=== PATIENT | male | born 1960 | race Caucasian/White ===

== ENCOUNTER 2024-09-21 10:16 | Outpatient (CLI) | payer MEDICARE, SELFPAY ==
[2024-09-21 14:21] LABS: Alanine Aminotransferase 33 U/L (6-50); Albumin Level 4.5 g/dL (3.5-5.1); Alkaline Phosphatase 97 U/L (38-126); Anion Gap 12 mmol/L (4-12); Aspartate Amino Transferase 33 U/L (17-59); Bilirubin,Total 0.6 mg/dL (0.2-1.3); Blood Urea Nitrogen 18 mg/dL (9-20); Calcium 9.9 mg/dL (8.4-10.2); Carbon Dioxide 20 mmol/L (22-30); Chloride 105 mmol/L (98-107); Cholesterol 190 mg/dL (0-200); Estimated Glomerular Filt Rate > 60; Glucose 120 mg/dL (65-110); HDL Direct 87 mg/dL; Potassium 3.9 mmol/L (3.4-5.0); Sodium 137 mmol/L (137-145); Total Protein 7.7 g/dL (6.3-8.2); Triglycerides 228 mg/dL (<150)
[2024-09-21 14:32] LABS: LDL Cholesterol Direct 56 mg/dL
[2024-09-21 14:52] LABS: Prostate Specific Antigen 5.5 ng/mL (< OR = 4.0)
== END 2024-09-21 10:17 | disposition home or self-care (01) ==
LOC: ANHLAB 10:21
PROVIDERS: PCP Internal Medicine; Visit Provider Internal Medicine
DX: Z12.5 Encounter for screening for malignant neoplasm of prostate (principal); I10 Essential (primary) hypertension; E55.9 Vitamin D deficiency, unspecified
CPT/HCPCS: 36415; 80053; 80061; 82306; 84153; G0103

== ENCOUNTER 2025-01-24 01:32 | Day surgery (SDC) | payer MEDICARE, SELFPAY ==
--- NOTE | 2025-01-14 14:52 | SUR.PREOP ---
[facility] has started construction of its new state of the art ER which will open Spring 2026. With this, we anticipate parking may be a challenge for some our surgical patients and families. Parking spaces are limited but are available for all Surgical, obstetrics, and ER patients sharing this lot. If you arrive and find you are having a hard time finding a parking space, please note that we understand the challenges, please drive around the hospital and park near Hospital Entrance 1. When you enter this entrance, you can ask a volunteer to direct or take you back to the surgical waiting area to check in. We appreciate everyone?s understanding of these expected challenges while we build for your future. Report to the Outpatient Waiting Room, entrance under the green pavilion located off [address], at time 11am__ on date _01/24/25 . Planned Procedure Time: _1pm_.? Time changes happen often and if your time is changed the preop area will call you the afternoon before. - You and your visitor will be asked to self-screen and do not enter if you have any COVID symptoms. Please call surgeon if you need to reschedule. - A mask is optional within the hospital at this time. Patients may have clear liquids (water, carbonated beverages, clear teas, apple juice) until 3 hours prior to surgery with a maximum of 20 ounces. - No food from midnight until time of surgery and no smoking, or chewing tobacco (or any form of nicotine). No chewing gum, candy or mints. Take only the following medications with a SIP of water on the morning of surgery: ___None___ DO NOT STOP ANY OF YOUR OTHER PRESCRIPTION MEDICATIONS PRIOR TO SURGERY EXCEPT THE FOLLOWING Hold all vitamins and supplements for 3 days per anesthesiologist. Medications to discontinue per physician: Advised pt to follow up with GI regarding methotrexate regimen. ___ Date to take last dose of vitamins__01/20/25__ Please no make-up, nail bengali, hairspray, perfume, deodorant, or body powder the day of surgery.? No jewelry (including any body piercings) or valuables the day of surgery, leave them at home.? Please take a shower or bath the night before, or the morning of, surgery with an antibacterial soap.? Wear comfortable, loose fitting clothing.? - Jewelry must be removed prior to entering the operating room.? Rings and piercings that are not removed may be cut off. - The hospital will not accept responsibility for valuables.? - Please leave all valuables, including medications, at home the day of surgery. If you are going home after surgery, a licensed laborer driver must drive you home.? - NO public transportation without another adult if you receive anesthesia. - We recommend that an adult stay with you for 24 hours following discharge. - We also recommend that you do not drive, make important decision, drink alcoholic beverages, or take any drugs that were not prescribed by your health care provider for at least 24 hours after your discharge time. Follow any additional instructions given to you from your surgeon. Telephone instructions given to __Cole____and asked if any additional questions and then verbalized understanding. Patient advised to call surgeon office or pre surgery nurse liaison [phone] if any additional questions.
[2025-01-14 14:58] VITALS: BMI 30.7
--- NOTE | 2025-01-17 07:20 | PM.HPGS ---
History of Present Illness History of Present Illness Consent: Risks, benefits, and alternatives have been discussed and questions answered. Patient agrees to proceed with procedure. Chief complaint: Elev PSA Narrative: Jai Cyr is a 64 year old male Pt. only has 3cm colon remaining due to Crohn's disease. ?PSA recently 5.5. Addendum Note?(Everton Alcazar MD; 11/08/2024 7:02 AM) PSA: 6.0 / 18.7% free. ? Will discuss mpMRI. Addendum Note?(Everton Alcazar MD; 11/08/2024 4:05 PM) I left patient a message regarding his PSA elevation and my recommendations for prostate MRI. Addendum Note?(Everton Alcazar MD; 12/05/2024 4:08 PM) I had a long talk with the patient about his abnormal prostate MRI. ?I am going to have him come by the office for a rectal exam to see if transrectal or transperineal biopsy will be do-able Addendum Note?(Everton Alcazar MD; 12/07/2024 2:47 PM) Patient came by office and I was able to do a normal rectal exam on him. ?I think there is ?enough rectal stump to allow for a traditional UroNav biopsy Review of Systems Cardiovascular: Cardiovascular: Denies chest pain, Denies lightheadedness, Denies palpitations and Denies dyspnea Respiratory: Respiratory: Denies dyspnea Gastrointestinal: Gastrointestinal: Denies diarrhea, Denies nausea and Denies vomiting Genitourinary: Genitourinary: Denies hematuria and Denies dysuria Endocrine: Endocrine: Denies palpitations [facility] Family History Family History (System 09/07/19 @ 09:43 by Namrata Treviño) Father Family history of diabetes mellitus in first degree relative Other Diabetes mellitus Hypertension Social History Social History (System 09/07/19 @ 09:43 by Namrata Treviño) Years smoked: 30 Smoking status: Former smoker Alcohol intake: current Drinks per week: 20 Substance use type: marijuana Other substance usage details: daily Living arrangements: with family Spiritual care concerns: No Meds Home Medications and Allergies Home Medications ?Medication ?Instructions ?Recorded ?Confirmed ?Type ascorbic acid (vitamin C) 1,000 mg 500 mg PO DAILY 01/14/25 01/14/25 History tablet,extended release (C Complex) cyanocobalamin (B12)-cobamamide mustapha sublingual DAILY 01/14/25 History 5,000 mcg-100 mcg sublingual lozenge (B12) losartan 100 mg tablet 100 mg PO DAILY 01/14/25 01/14/25 History methotrexate sodium 2.5 mg tablet 2.5 mg PO WEEKLY 01/14/25 01/14/25 History vit D3-folic acid-vit B2-B6-B12 1 tablet PO DAILY 01/14/25 01/14/25 History 2,000 unit-800 mcg-0.32 mg tablet Allergies Allergy/AdvReac Type Severity Reaction Status Date / Time No Known Allergies Allergy Verified 01/14/25 14:54 Exam Const: General: no acute distress Resp: Effort & Inspection: normal respiratory effort GI: Inspection: non-distended GI Palp: No abdominal tenderness and No Guarding due to palpation present (GI) Auscultation: normal bowel sounds Assessment and Plan Assessment and plan (1) Elevated PSA: Code(s): R97.20 - Elevated prostate specific antigen [PSA] Status: Acute Assessment and Plan: UroNav prostate biopsy
--- OUTSIDE RECORDS SUMMARY | 2025-01-24 01:35 | XMS_ITS | Patient Health Record ---
Author Organization [facility] Address [address] [facility] [address] [place] [address] Care Team Providers Care Supervisor Laboratory Animal Facility Name Role Phone Chauncey Aviles Unavailable [phone] Reason For Referral No Information Plan Of Treatment No Information
--- OUTSIDE RECORDS SUMMARY | 2025-01-24 01:35 | XMS_ITS | Clinical Summary ---
Author Organization [facility] Address [address] [place] [address] Phone Care Team Providers Care Promotions Manager Name Role Phone Jai Hanson MD Primary Care Provider [phone] Allergies No known active allergies Medications losartan (COZAAR) 50 MG Tablet Take 50 mg by mouth daily. Active ibuprofen (MOTRIN) 200 MG Tablet Take 200 mg by mouth every 8 hours as needed (2 tabs prn). Active Family History Medical History Relation Name Comments Diabetes Father Osteoarthritis Mother Stroke Mother Relation Name Status Comments Father Mother Alive Social History Tobacco Use Types Packs/Day Years Used Date Smoking Tobacco: Some Days Cigarettes 0.3 30 Smokeless Tobacco: Never Alcohol Use Standard Drinks/Week Comments Yes 0 (1 standard drink = 0.6 oz pur e alcohol) one mixed drink nightly Sex and Gender Information Value Date Recorded Sex Assigned at Not on file Legal Sex Male 7:35 PM CDT Gender Identity Not on file Sexual Orientation Not on file Occupation Industry Job Start Date Job End Date disabled Not on file Not on file Not on file Last Filed Vital Signs Vital Sign Reading Time Taken Comments Blood Pressure 140/90 05/04/2018 2:59 PM VISUAL ASSOCIATE Pulse 87 05/04/2018 2:59 PM VISUAL ASSOCIATE Temperature 36 C (96.8 F) 07/01/2015 12:45 PM CDT Respiratory Rate 20 02/28/2018 2:54 PM VISUAL ASSOCIATE Oxygen Saturation 98% 05/04/2018 2:59 PM VISUAL ASSOCIATE Inhaled Oxygen Concentration - - Weight 103 kg (227 lb) 05/04/2018 2:59 PM VISUAL ASSOCIATE Height 175.3 cm (5' 9) 05/04/2018 2:59 PM VISUAL ASSOCIATE Body Mass Index 33.52 05/04/2018 2:59 PM VISUAL ASSOCIATE Plan of Treatment Health Maintenance Due Date Last Done Comments Hepatitis C Virus (HCV) Screening 1960 TdaP Immunization 1960 Cologuard 02/07/2005 Immunochemical Fecal Occult Blood 02/07/2005 Pneumococcal Immunization (5 0+ years) (1 of 1 - PCV) 02/07/2010 Zoster Immunization (1 of 2) 02/07/2010 Influenza Immunization (#1) 11/26/202412/26, 02/17/2015 SARS-COV-2 Immunization ( season) 2024 02/09/2021, 06/02/2020 Colonoscopy 03/16/2028 03/16/2018, 07/01/2015 Colorectal Cancer Screening 03/16/2028 Respiratory Syncytial Virus (RSV) Immunization (Adult) (1 - 1-dose 75+ series) 02/07/2035 Hepatitis B Immunization Aged Out No longer eligible based on patient's age to complete this topic Human Papillomavirus (HPV) Immunization Aged Out No longer eligible b ased on patient's age to complete this topic Meningococcal Immunization (ACWY) Aged Out No longer eligible b ased on patient's age to complete this topic Rotavirus Immunization Aged Out No lo nger eligible based on patient's age to complete this topic Procedures Procedure Name Priority Date/Time Associated Diagnosis Comments COLONOSCOPY Routine 03/16/2018 from Last 3 Months or Most Recently Relevant to Health Maintenance Results * COLONOSCOPY (03/16/2018) Eddi Couch DO PROCEDURE/MINOR SURGICAL ORDERA BLES Final Result from Last 3 Months or Most Recently Relevant to Health Maintenance Insurance MEDICARE Care Teams Promotions Manager Relationship Specialty Start Date End Date Jai Hanson MD PCP - General Internal Medicine 12/23/17
--- OUTSIDE RECORDS SUMMARY | 2025-01-24 01:35 | XMS_ITS | Clinical Summary ---
Author Organization [facility] Address [address] [place]ar[place]: Sandra [place]rel[place]n [place] [address] Care Team Providers Care Garnett Feeder Name Role Phone Unavailable Primary Care Provider Unavailabl e Medications predniSONE (DELTASONE) 20 mg tablet Take 2 tablets (40 mg) by mouth every morning for 7 days, THEN 1 tablet (20 mg) every morning for 7 days. 21 Tablet 08/20/2021 3:18 PM CDT 2 Active losartan (COZAAR) 50 mg tablet TAKE ONE AND ONE-HALF TABLETS ONCE DAILY 135 Tablet 1 01/06/2022 3:14 PM CDT 2 Active clobetasoL (TEMOVATE) 0.05 % Solution Apply a thin film twice daily to rash on abdomen. 50 mL 2 11/02/2021 6:00 PM CDT 2 Active ergocalciferol (VITAMIN D2) 50,000 unit capsule Take 1 capsule by mouth once monthly. 4 Capsule 1 12/21/2021 2:50 PM CDT 2 Active methotrexate (RHEUMATREX) 2.5 mg Tablet Take 6 tablets (15 mg total) by mouth every 7 days 24 Tablet 2 01/06/2022 3:14 PM CDT 2 Active cholecalciferol , Vitamin D3, 125 mcg (5,000 unit) Capsule Take 1 capsule (5,000 Units total) by mouth daily 90 Capsule 3 10/19/2022 2:57 PM CDT 2 Active losartan (COZAAR) 50 mg tablet Take 1.5 Tablets (75 mg) by mouth daily. 135 Tablet 1 01/24/2023 3:23 PM CDT 3 Active losartan (COZAAR) 50 mg tablet Take 1.5 Tablets (75 mg) by mouth daily. 135 Tablet 1 08/15/2023 9:34 AM CDT 4 Active clobetasoL (TEMOVATE) 0.05 % Solution Apply thin layer to affected area(s) on abdomen 2 times daily. 50 mL 2 08/15/2023 9:34 AM CDT 4 Active cholecalciferol , Vitamin D3, 125 mcg (5,000 unit) Capsule Take 1 capsule (5,000 Units total) by mouth daily 90 Capsule 3 11/07/2024 2:02 PM CDT 5 Active methotrexate (RHEUMATREX) 2.5 mg Tablet Take 6 Tablets (15 mg) by mouth every 7 days. 72 Tablet 12/11/2024 9:36 AM CDT 5 Active folic acid (FOLVITE) 1 mg tablet Take 1 tablet (1 mg total) by mouth daily 90 Tablet 3 01/12/2025 1:27 PM CDT 5 Active losartan (COZAAR) 100 mg tablet Take 1 Tablet (100 mg) by mouth daily. 90 Tablet 01/12/2025 1:27 PM CDT 5 Active losartan (COZAAR) 100 mg tablet Take 1 Tablet (100 mg) by mouth daily. 90 Tablet 09/22/2024 10:29 AM CDT 5 01/12/20 25 Discontinu ed(Reorder ) Immunizations Immunization Administration Dates Next Due INFLUENZA VACCINE TRIVALENT SPLIT VIRUS, (6 MOS UP), 0.5ML (PF), IM 05/21/2024 Social History Tobacco Use Types Packs/Day Years Used Date Smoking Tobacco: Never Assessed Sex and Gender Information Value Date Recorded Sex Assigned at Not on file Legal Sex Male 3:27 PM CDT Gender Identity Not on file Sexual Orientation Not on file Plan of Treatment Health Maintenance Due Date Last Done Comments DTAP/TDAP/TD VACCINES (1 - Tdap) 02/07/1979 COLORECTAL SCREENING 02/07/2005 Colorectal Cancer Screening 02/07/2005 FIT-DNA Q 3 years 02/07/2005 FIT/FOBT Q 1 year 02/07/2005 Flex Sig/CT Colonography Q 5 years 02/07/2005 ZOSTER VACCINE (1 of 2) 02/07/2010 INFLUENZA VACCINE (#1) 2024 05/21/2024 RSV VACCINE (60+ or ) (1 - 1-dose 75+ series) 02/07/2035 Insurance RX [employer] Medicare Part D RX [employer] (INTERNAL) [facility]
--- OUTSIDE RECORDS SUMMARY | 2025-01-24 01:35 | XMS_ITS | Encounter Summary ---
Author Organization [facility] Address [address] [place] [address] Phone Care Team Providers Care School Attendance Secretary Name Role Phone Jai Hanson MD Primary Care Provider [phone] Encounter Details Date Type Department Care Team (Late st Contact Info) Description 09/19/2020 Orders Only [facility] Scanning, Provider Social History Tobacco Use Types Packs/Day Years Used Date Smoking Tobacco: Former Cigarettes 0.5 44.1 1 975 - 05/01/2018 Smokeless Tobacco: Never Comments:working towards smo apurva cessation Alcohol Use Standard Drinks/Week Comments Yes 21 (1 standard drink = 0.6 oz pure alcohol) ~ 2 drinks per evening (Whiskey) Sex and Gender Information Value Date Recorded Sex Assigned at Not on file Legal 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[employer] Gender Identity Not on file Sexual Orientation Not on file documented as of this encounter Plan of Treatment Not on file documented as of this encounter Procedures Procedure Name Priority Date/Time Associated Diagnosis Comments SCAN - LABS 09/19/2020 documented in this encounter Results * SCAN - LABS (09/19/2020) us Provider Scanning Edited Result - Final documented in this encounter Visit Diagnoses Not on filedocumented in this encounter Care Teams School Attendance Secretary Relationship Specialty Start Date End Date Jai Hanson MD PCP - General Internal Medicine 02/13/18 documented as of this encounter
--- OUTSIDE RECORDS SUMMARY | 2025-01-24 01:35 | XMS_ITS | Encounter Summary ---
Author Organization [facility] Address [address] [facility] [address] [place] [address] Phone Care Team Providers Care Crane Hoist Or Lift Operator Name Role Phone Jai Hanson MD Primary Care Provider [phone] Encounter Details Date Type Department Care Team (Late st Contact Info) Description 01/19/2025 Results Follow-Up [facility] Medicine Gastroenterology [address] [place] [address] [place] [id number] Charlotte Geller MD PhD [address] [place] [address] [email or web address] Blood, Hepatitis B Surface Antigen Blood, BLOOD MISC TO BRISTOL Social History Tobacco Use Types Packs/Day Years Used Date Smoking Tobacco: Some Days Cigarettes 0.5 46.9 Started: 1974; Last attempted to quit: 05/01/2018 Smokeless Tobacco: Never Comments:Only smokes 2-3 cig s/ week- not interested in quitting- no info given Alcohol Use Standard Drinks/Week Comments Yes 21 (1 standard drink = 0.6 oz pure alcohol) ~ 2 drinks per evening (Whiskey) AUDIT-C Answer Date Recorded Q1: How often do you have a drink containing alcohol? 4 or more times a week 07/03/2024 Q2: How many drinks containi ng alcohol do you have on a typical day when you are drinking? 1 or 2 Q3: How often do you have si x or more drinks on one occasion? Weekly 07/03/2024 Hunger Vital Sign Answer Date Recorded Within the past 12 months, y ou worried that your food would run out before you got the money to buy more. Never true 11/30/19 25 Within the past 12 months, t he food you bought just didn't last and you didn't have money to get more. Never true 11/29/2024 Personal Safety Answer Date Recorded Have you ever been in or are you currently in a harmful physical or emotional relationship or is someone making you feel afraid or unsafe? 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
--- OUTSIDE RECORDS SUMMARY | 2025-01-24 01:35 | XMS_ITS | Clinical Summary ---
Author Organization [facility] Address [address] [place] [address] Care Team Providers Care Railroad Supervisor [employer] Name Role Phone Jai Hanson MD Primary Care Provider [phone] Allergies No known active allergies Medications multivitamin capsuleIndicatio ns:Vitamin Deficiency Prevention Take 1 capsule by mouth every morning Active CYANOCOBALAMIN, VITAMIN B-12, ORALIndications: Prevention of Vitamin B12 Deficiency Take 1,000 Units by mouth every morning Unsure of dose Active ibuprofen (ADVIL,MOTRIN) 200 mg tab/capIndicatio ns:Pain Take 4 tablet/capsule (800 mg total) by mouth every 6 (six) hours as needed for pain Active acetaminophen (TYLENOL) 500 mg tablet Take 1 tablet (500 mg total) by mouth every 6 (six) hours as needed for pain Active certolizumab pegol (CIMZIA) 400 mg (200 mg x 2) kitIndications:C rohn's disease of both small and large intestine without complication (HCC) Inject 2 mL (400 mg total) under the skin every 2 (two) weeks Cimzia administered @ [facility] 5C. 2 mL 11 05/28/19 23 Active clobetasoL (TEMOVATE) 0.05 % external solutionIndicati ons:Dermatosis of the Scalp Apply thin film twice daily to affected area of rash on abdomen. 50 mL 2 08/11/19 24 Active cholecalciferol (VITAMIN D-3) 5,000 unit capsuleIndicatio ns:Low serum vitamin D Take 1 capsule (5,000 Units total) by mouth daily 90 capsule 3 04/12/19 25 Active methotrexate 2.5 mg tabletIndication s:Crohn's disease of both small and large intestine with other complication Take 6 Tablets (15 mg) by mouth every 7 days. 72 tablet 12/11/19 25 Active losartan (COZAAR) 100 mg tablet Take 1 tablet (100 mg total) by mouth daily 09/21/19 25 Active folic acid (FOLVITE) 1 mg tabletIndication s:Crohn's disease of both small and large intestine with other complication,Hig h risk medications (not anticoagulants) long-term use Take 1 tablet (1 mg total) by mouth daily 90 tablet 3 01/11/20 25 Active losartan (COZAAR) 50 mg tabletIndication s:hypertension Take 1.5 tablets (75 mg total) by mouth every morning Discontin ued(Alter martin therapy) ergocalciferol (VITAMIN D) 50,000 unit capsule 12/22/19 Discontin ued(Thera py completed ) folic acid (FOLVITE) 1 mg tablet Take 1 tablet every day by oral route. 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 He could also try Flonase. He should continue to follow with Dermatology particularly if we need to change to another treatment that may not be as effective on pyoderma as a TNF. Perianal fistula due to Crohn's disease 01/11/20 Assessment & Plan (01/10/2025 6:53 PM CDT): The patient has patent fistulas and likely has minimal symptoms due to his diversion. He has had more production of mucus recently. We will try to find him a treatment that is effective for perianal disease to limit progression. High risk medications (not anticoagulants) long- term use 04/28/2023 Encounter for smoking cessation counseling 04/28 Assessment & Plan (01/10/2025 6:54 PM CDT): The patient is strongly encouraged to quit smoking as he is already doing it very infrequently. He is also encouraged to cut back alcohol as this maybe contributing to his macrocytosis and steatosis Ileostomy status 05/01/2020 Incisional hernia, without obstruction or gangre ne 01/15/2020 Overview (01/15/2020): Added automatically from request for surgery [id number] Parastomal hernia without obstruction or gangren e 01/15/2020 Overview (01/15/2020): Added automatically from request for surgery [id number] Incarcerated incisional hernia 03/10/2018 Overview (03/10/2018): Added automatically from request for surgery [id number] Hypertension 02/13/2018 Parastomal hernia 02/13/2018 Incisional hernia 02/13/2018 Bilateral inguinal hernia 02/13/2018 Low vitamin D level 12/25/2014 Skin abrasion 01/17/2012 Crohn's disease of both small and large intestin e 08/05/2010 Assessment & Plan (01/10/2025 6:52 PM CDT): Unfortunately the patient' seems to be losing response to Cimzia. We will check his trough level tomorrow to see if the loss is related to low drug level or antibodies. We suspect there is limited ability to increase his dose of Cimzia. As he previously failed Remicade, azathioprine, and methotrexate and is more symptomatic of his perianal fistulas and he has had a history parastomal pyoderma gangrenosum, Dr. Geller would be most interested in a systemic treatment that would potentially treat the skin and perianal disease. Specifically he would be most interested an IL 23 if it could be approved and affordable. He is not felt to be a good candidate a ROHAN inhibitor given his smoking history and other comorbidities. If an IL 23 we would not be affordable, we potentially are a little worried that it may not be sufficient for his perianal disease or pyoderma. Encounters Date Type Department Care Team Description 01/19/2025 Results Follow-Up [facility] Medicine Gastroenterology [address] [facility] 12th Floor [address] [place] [phone] Charlotte Geller MD PhD T-SPOT.TB Blood, Hepatitis B Surface Antigen Blood, BLOOD MISC TO [facility] 01/11/2025 9:30 AM CDT Infusion [facility] Special[facility]fusion [facility] [address] [facility] 7th [place] [address] Crohn's disease of both small and large intestine with other complication (Primary Dx) 01/11/2025 9:10 AM CDT Lab [facility] ([facility]) [address] [place] [phone] Crohn's disease of both small and large intestine with other complication; High risk medications (not anticoagulants) long-term use; Routine health maintenance 01/10/2025 2:30 PM CDT Office Visit [facility] [address] [place] [address] Medical Office [address] [place] [phone] Charlotte Geller MD PhD Crohn's disease of both small and large intestine with other complication (Primary Dx); High risk medications (not anticoagulants) long-term use; Perianal fistula due to Crohn's disease (HCC); Pyoderma gangrenosum (HCC); Encounter for smoking cessation counseling 01/10/2025 Orders Only [facility] [address] [place] [address] 12th [place] [address] [place] [address] Tabitha Martin, JAYME Crohn's disease of both small and large intestine with other complication (Primary Dx); High risk medications (not anticoagulants) long-term use; Routine health maintenance 01/09/2025 Results Follow-Up [facility] [address] [place] [address] Medical Office Building 1 [address] [place] [phone] Charlotte Geller MD PhD MRI Abdomen Enterography W WO Contrast 01/08/2025 10:56 AM CDT - 01/08/2025 11:59 PM CDT Hospital Encounter [facility] [address] [place] [address] Crohn's disease of both small and large intestine with other complication Discharge Disposition: Discharge to home or self care 01/04/2025 Orders Only [facility] Medicine Gastroenterology [address] [phone] Charlotte Geller MD PhD 01/04/2025 Orders Only [facility] Medicine Gastroenterology [address] [phone] Tabitha Martin, RN Crohn's disease of both small and large intestine with other complication (Primary Dx); High risk medications (not anticoagulants) long-term use; Routine health maintenance 12/27/2024 9:30 AM CDT Infusion [facility] Special[facility]fusion [facility] Pending sale to [facility] [address] [phone] Crohn's disease of both small and large intestine with other complication (Primary Dx) 12/13/2024 9:30 AM CDT Infusion [facility]fusion [facility] [address] [phone] Crohn's disease of both small and large intestine with other complication (Primary Dx) 12/04/2024 Documentation [facility] Medicine Gastroenterology [address] [place] [phone] Tabitha Martin, carpenter's helper supply orders 11/29/2024 9:30 AM CDT Clinical Support [facility]fusion [facility] [address] [phone] Crohn's disease of both small and large intestine with other complication (Primary Dx) 11/16/2024 Results Follow-Up [facility] Medicine Gastroenterology [address] [place] [phone] Charlotte Geller MD PhD CRP (acute phase), Comprehensive metabolic panel, CBC with auto differential, Additional followed-up results: 2 11/15/2024 10:30 AM CDT [facility]) [address] [place] [phone] Crohn's disease of both small and large intestine with other complication; High risk medications (not anticoagulants) long-term use; Routine health maintenance 11/15/2024 9:30 AM CDT Clinical Support [facility]fusion [facility] Pending [facility] to [facility] [address] [phone] Crohn's disease of both small and large intestine with other complication (Primary Dx) 11/01/2024 9:30 AM CDT Clinical Support [facility] P[facility] to [facility] [address] [phone] Crohn's disease of both small and large intestine with other complication (Primary Dx) 10/26/2024 Orders Only [facility] Infusion [facility] [address] [place] [phone] Ramila Collins RN from Last 3 Months Surgical History Surgery Date Site/Laterality Comments COLONOSCOPY HERNIA REPAIR 03/28/1997 - 03/27/1998 INGUINAL HERNIA REPAIR HERNIA REPAIR 03/28/2004 - 03/27/2005 I&D PERIANAL ABSCESS SUPERFICIAL 03/28/1999 - 03/27/2000 subtotal colectomy TOTAL PROCTECTOMY 06/26/2010 - 07/25/2010 completion proctectomy, ventral hernia repair, end ileostomy CYSTOSCOPY W/ URETERAL STENT PLACEMENT 06/26/2010 - 07/25/2010 Bilateral COLECTOMY 03/28/1995 - 03/27/1996 ileocolic resection TONSILLECTOMY INCISIONAL HERNIA REPAIR Open recurrent incisional and parastomal hernia repair 2020 Medical History Medical History Date Comments Hypertension 02/13/2018 Parastomal hernia 02/13/2018 Incisional hernia 02/13/2018 Bilateral inguinal hernia 02/13/2018 Crohn's disease (HCC) 1970 Low vitamin D level 12/25/2014 History of blood transfusion Anal fistula Tobacco abuse GERD (gastroesophageal reflux disease) Family History Medical History Relation Name Comments Diabetes Father Family history of diabetes mellitus - (Added by TW Conv) Hypertension Father Kidney disease Father Family histor y of kidney disease - (Added by TW Conv) Liver disease Father Family history of liver disease - (Added by TW Conv) Stroke Mother Relation Name Status Comments Father (Age 69) Mother Alive Social History Tobacco Use Types Packs/Day Years Used Date Smoking Tobacco: Some Days Cigarettes 0.5 46.9 Started: 1974; Last attempted to quit: 05/01/2018 Smokeless Tobacco: Never Tobacco Cessation:Ready to Q uit: No; Counseling Given: No Comments:Only smokes 2-3 cigs/ week- not interested in quitting- no info [...] on file 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 Gender Identity Not on file Sexual Orientation Not on file Obstetrics History Last Filed Vital Signs Vital Sign Reading Time Taken Comments Blood Pressure 163/78 01/11/2025 9:30 AM CDT Pulse 69 01/11/2025 9:30 AM CDT Temperature 36.2 C (97.2 F) 01/11/2025 9:30 AM CDT Respiratory Rate 16 01/11/2025 9:30 AM CDT Oxygen Saturation 97% 01/11/2025 9:30 AM CDT Inhaled Oxygen Concentration - - Weight 94.6 kg (208 lb 9.6 oz) 01/10/2025 2:15 P M CDT Height 174 cm (5' 8.5) 01/10/2025 2:15 PM CDT Body Mass Index 31.26 01/10/2025 2:15 PM CDT Plan of Treatment Health Maintenance Due Date Last Done Comments Colon Cancer Screening-Colonoscopy 1960 Depression Screening 1960 Hepatitis C Screening 1960 Prostate Cancer Screening-PSA 1960 DTaP/Tdap/Td Vaccine (1 - Tdap) 02/07/1971 Regular Well Visit/Exam 18-64 02/07/1978 Pneumococcal vaccine <65 (1 of 2 - PCV) 02/07/1979 Lung Cancer Screening 02/07/2010 Covid-19 Vaccine (4 - 2024-2 6 season) 2024 02/09/2021, 06/02/2020, 05/27/2020 Influenza Vaccine (#1) 2024 , 01/14/2023, 02/25/2022, Additional history exists Zoster Vaccine Completed 02/22/2023, 11/23/2022 Hepatitis B Screening Completed 01/11/2025 Medical Devices Implanted Type Area Grounds Person Device Identifier Shelf Expiration Date Model / Serial / Lot [employer]/C R Bard [id number] Bard [id number] Monofilament Soft Lightweight Low Profile Square - [id number] Implanted:Qty: 1 on 07/03/2018 by Everton Cid MD at [facility] Mesh N/A: Abdomen [employer] Bard [id number] 03/24/2023 [id number] / / [id number] [employer] R Bard [id number] Soft Mesh 6x6in Patch Knitted Flat Sheet Groin Hernia Square Mesh - Sn/A - [id number] Implanted:Qty: 1 on 04/21/2020 by Everton Cid MD at [facility] Mesh N/A: Abdomen [employer]/C R Bard [id number] 08/22/2024 [id number] / N/A / [id number] Procedures Procedure Name Priority Date/Time Associated Diagnosis Comments HEPATITIS B SURFACE ANTIGEN Routine 01/11/2025 9:15 AM CDT Crohn's disease of both small and large intestine with other complication High risk medications (not anticoagulants) long-term use Routine health maintenance T-SPOT.TB Routine 01/11/2025 9:15 AM CDT Crohn's disease of both small and large intestine with other complication High risk medications (not anticoagulants) long-term use Routine health maintenance BLOOD MISC TO [facility] Routine 01/11/2025 9: 07 AM CDT MRI ABDOMENT ENTEROGRAPHY W WO CONTRAST Schedule Routine, Read Routine (OP Routine) 01/08/2025 12:35 PM CDT Crohn's disease of both small and large intestine with other complication EGFR Routine 11/15/2024 9:47 AM CDT Crohn's disease of both small and large intestine with other complication High risk medications (not anticoagulants) long-term use Routine health maintenance DIFFERENTIAL AUTO Routine 11/15/2024 9:4 7 AM CDT Crohn's disease of both small and large intestine with other complication High risk medications (not anticoagulants) long-term use Routine health maintenance CBC WITH AUTO DIFFERENTIAL Routine 11/15/2024 9:47 AM CDT Crohn's disease of both small and large intestine with other complication High risk medications (not anticoagulants) long-term use Routine health maintenance COMPREHENSIVE METABOLIC PANEL Routine 11/15/2024 9:47 AM CDT Crohn's disease of both small and large intestine with other complication High risk medications (not anticoagulants) long-term use Routine health maintenance CRP (ACUTE PHASE) Routine 11/15/2024 9:4 7 AM CDT Crohn's disease of both small and large intestine with other complication High risk medications (not anticoagulants) long-term use Routine health maintenance from Last 3 Months Results * T-SPOT.TB Blood (01/11/2025 9:15 AM CDT) [facility] T-SPOT.TB Negative SeeBelow Comment: Normal Value: Negative A negative test result does not exclude the possibility of exposure to or infection with Mycobacterium tuberculosis (M. tuberculosis). Patients with recent exposure to TB infected individuals exhibiting a negative T-SPOT.TB result should be considered for retesting within 6 weeks or if other relevant clinical symptoms indicate. Results from T-SPOT.TB testing must be used in conjunction with each individual's epidemiological history, current medical status, and results of other diagnostic evaluations. The T-SPOT.TB test is qualitative and results are reported as positive, borderline or negative, given that the test controls perform as expected. In line with the Centers for Disease Control and Prevention's 2010 recommendation to report quantitative measurements alongside the qualitative result, the laboratory provides spot counts for informational purposes only. The T-SPOT.TB test should not be interpreted as a quantitative test. T-SPOT.TB Panel A Spot Count 1 [facility] T-SPOT.TB Panel B Spot Count 3 [facility] T-SPOT.TB Negative Control Passed [facility] T-SPOT.TB Positive Control Passed [facility] Comment: Test Performed at: [facility] [address] [place] [phone] DALILA TOBIAS,PHD Blood 01/11/2025 9:15 AM CDT 01/11/2025 10:16 AM CDT Charlotte Geller MD PhD LAB MICROBIOLOGY - GENERA L ORDERABLES Final Result [facility] [place] [address] * Hepatitis B Surface Antigen Blood (01/11/2025 9:15 AM CDT) HepBsAg Nonreactive Nonreactive Blood 01/11/2025 9:15 AM CDT 01/11/2025 9:25 AM CDT Charlotte Geller MD PhD LAB MICROBIOLOGY - GENERA L ORDERABLES Final Result [facility] [place] [address] * MRI Abdomen Enterography W WO Contrast (01/08/2025 12:35 PM CDT) Anatomical Region Laterality Modality Body N/A Magnetic Resonan ce 01/08/2025 2:45 PM CDT Impressions 01/08/2025 3:48 PM CDT 1. Short segments of active inflammation in the distal ileum as well as in small bowel loops of the mid abdomen and right lower quadrant at the level of a ventral hernia. 2. Patent appearing suprasphincteric fistulous tract extending from the rectal pouch to the intergluteal cleft is again seen. 3. Post surgical changes from subtotal colectomy with end ileostomy and Us's pouch. Dictated by: Sujey Grier M.D. The radiology attending physician has personally reviewed this study, and had reviewed and/or edited this written report and agrees with it. Electronically signed by: John Lombardi M.D. Narrative 01/08/2025 3:48 PM CDT EXAMINATION: MAGNETIC RESONANCE IMAGING OF THE ABDOMEN WITH AND WITHOUT CONTRAST HISTORY: Most recent ileoscopy on 07/03/2024 demonstrated multiple ulcers in the neoterminal ileum. Some of the ulcers were distributed circumferentially resulting in stenosis. A stenosis 10 cm proximal from the stoma was dilated. Biopsy results demonstrated acute and chronic inflammation. TECHNIQUE: Magnetic resonance imaging of the abdomen was performed prior to and following the administration of intravenous contrast. Oral contrast and 1 mg of intravenous glucagon was administered prior to the examination. Protocol: MR Enterography Contrast: Dotarem (gadoterate) 18 mL COMPARISON: CTs with most recent dated 06/06/2020; MRI 09/06/2018 FINDINGS: Bowel: Evaluation of the small bowel is partially limited due to underdistention an incomplete inclusion of the anterior abdominal wall on the coronal sequences. Short segments measuring approximately 2 cm demonstrating mild wall thickening and mucosal enhancement in the distal ileum upstream of the stoma, within small bowel near the ventral hernia defect, and within the mid abdomen (series 38, image 14) (series 40, image 27 and image 30). Suprasphincteric fistula extending from the low rectal Us's pouch at approximately the 5 o'clock position to the presacral space and through the left levator ani extending to the skin surface at the gluteal cleft is again seen, and likely patent (series 31, image 12). There is a supra intersphincteric low rectal fistulous tract extending to the presacral space and through the Postsurgical changes from subtotal colectomy with end ileostomy in the left lower quadrant. The parastomal hernia is increased in size compared to the prior examination and again demonstrates nonobstructed loops of small bowel. Us's pouch in the pelvis, which demonstrates submucosal fat deposition likely relating to sequelae of chronic inflammation. Right ventral abdominal wall hernia containing a nonobstructed loop of small bowel. Liver/Bile Ducts: Diffuse hepatic steatosis. No significant iron deposition. No liver surface nodularity. No significant intrahepatic or extrahepatic biliary ductal dilation. Gallbladder: Unremarkable. Pancreas: Unremarkable. Spleen: Unremarkable. Adrenals: Unremarkable. Kidneys: Symmetric enhancement. No hydronephrosis. Tiny nonenhancing cyst in the right interpolar region. Bladder: Unremarkable. Reproductive organs: Prostate and seminal vesicles are present and grossly unremarkable allowing for the large [id number]. Other Findings: Multilevel degenerative changes in the imaged spine. Scarring along the anterior abdominal wall. Scarring along the anterior abdominal wall. Procedure Note John Lombardi MD - 01/08/2025 EXAMINATION: MAGNETIC RESONANCE IMAGING OF THE ABDOMEN WITH AND WITHOUT CONTRAST HISTORY: Most recent ileoscopy on 07/03/2024 demonstrated multiple ulcers in the neoterminal ileum. Some of the ulcers were distributed circumferentially resulting in stenosis. A stenosis 10 cm proximal from the stoma was dilated. Biopsy results demonstrated acute and chronic inflammation. TECHNIQUE: Magnetic resonance imaging of the abdomen was performed prior to and following the administration of intravenous contrast. Oral contrast and 1 mg of intravenous glucagon was administered prior to the examination. Protocol: MR Enterography Contrast: Dotarem (gadoterate) 18 mL COMPARISON: CTs with most recent dated 06/06/2020; MRI 09/06/2018 FINDINGS: Bowel: Evaluation of the small bowel is partially limited due to underdistention an incomplete inclusion of the anterior abdominal wall on the coronal sequences. Short segments measuring approximately 2 cm demonstrating mild wall thickening and mucosal enhancement in the distal ileum upstream of the stoma, within small bowel near the ventral hernia defect, and within the mid abdomen (series 38, image 14) (series 40, image 27 and image 30). Suprasphincteric fistula extending from the low rectal Us's pouch at approximately the 5 o'clock position to the presacral space and through the left levator ani extending to the skin surface at the gluteal cleft is again seen, and likely patent (series 31, image 12). There is a supra intersphincteric low rectal fistulous tract extending to the presacral space and through the Postsurgical changes from subtotal colectomy with end ileostomy in the left lower quadrant. The parastomal hernia is increased in size compared to the prior examination and again demonstrates nonobstructed loops of small bowel. Us's pouch in the pelvis, which demonstrates submucosal fat deposition likely relating to sequelae of chronic inflammation. Right ventral abdominal wall hernia containing a nonobstructed loop of small bowel. Liver/Bile Ducts: Diffuse hepatic steatosis. No significant iron deposition. No liver surface nodularity. No significant intrahepatic or extrahepatic biliary ductal dilation. Gallbladder: Unremarkable. Pancreas: Unremarkable. Spleen: Unremarkable. Adrenals: Unremarkable. Kidneys: Symmetric enhancement. No hydronephrosis. Tiny nonenhancing cyst in the right interpolar region. Bladder: Unremarkable. Reproductive organs: Prostate and seminal vesicles are present and grossly unremarkable allowing for the large [id number]. Other Findings: Multilevel degenerative changes in the imaged spine. Scarring along the anterior abdominal wall. Scarring along the anterior abdominal wall. IMPRESSION: 1. Short segments of active inflammation in the distal ileum as well as in small bowel loops of the mid abdomen and right lower quadrant at the level of a ventral hernia. 2. Patent appearing suprasphincteric fistulous tract extending from the rectal pouch to the intergluteal cleft is again seen. 3. Post surgical changes from subtotal colectomy with end ileostomy and Us's pouch. Dictated by: Sujey Grier M.D. The radiology attending physician has personally reviewed this study, and had reviewed and/or edited this written report and agrees with it. Electronically signed by: John Lombardi M.D. us Charlotte Geller MD PhD IMG MRI PROCEDURES Final Result * eGFR (11/15/2024 9:47 AM CDT) eGFR >90 >=60 mL/min/1. 73 m2 Comment: Interpretive Data Reference Interval Normal >/= 90 mL/min/1.73m2 Mildly decreased* 60 - 89 mL/min/1.73m2 Mildly to moderately decreased 45 - 59 mL/min/1.73m2 Moderately to severely decreased 30 - 44 mL/min/1.73m2 Severely decreased 15 - 29 mL/min/1.73m2 Kidney Failure < 15 mL/min/1.73m2 *Relative to young adult level Estimated glomerular filtration rate is determined by the 2020 CKD-EPI equation recommended by the National Kid[employer] (A Unifying Approach to GFR Estimation: Recommendations of the NKF-ASK Task Force on Reassessing the Inclusion of Race in Diagnosing Kidney Disease, JASN 202). The CKD-EPI equation should not be used for patients with unstable renal function and has not been validated in children and those over 70. Current interpretive data was last reviewed 2021. Blood 11/15/2024 9:47 AM CDT 11/15/2024 10:08 AM CDT us Charlotte Geller MD PhD LAB BLOOD ORDERABLES Pamela astudillo Result [facility] Department [place] [address] * Differential, auto (11/15/2024 9:47 AM CDT) Pathologist [facility] Neutrophil abs 3.80 1.50 - 6.50 K/cumm Imm gran abs 0.03 0.00 - 0.10 K/cumm [facility] Lymphocyte abs 1.34 0.80 - 3.30 K/cumm [facility] Monocyte abs 0.73 0.20 - 0.80 K/cumm [facility] Eosinophil abs 0.14 0.00 - 0.50 K/cumm [facility] Basophil abs 0.04 0.00 - 0.10 K/cumm [facility] Neutrophil pct 62.5 % [facility] Comment: Interpretive Data Percent cell count reference ranges are not reported, since discordance with absolute values may lead to misinterpretation of CBC data. Current Interpretive Data was last revised on 2017. Imm gran pct 0.5 % [facility] Comment: Interpretive Data Percent cell count reference ranges are not reported, since discordance with absolute values may lead to misinterpretation of CBC data. Current Interpretive Data was last revised on 2017. Lymphocyte pct 22.0 % [facility] Comment: Interpretive Data Percent cell count reference ranges are not reported, since discordance with absolute values may lead to misinterpretation of CBC data. Current Interpretive Data was last revised on 2017. Monocyte pct 12.0 % [facility] Comment: Interpretive Data Percent cell count reference ranges are not reported, since discordance with absolute values may lead to misinterpretation of CBC data. Current Interpretive Data was last revised on 2017. Eosinophil pct 2.3 % [facility] Comment: Interpretive Data Percent cell count reference ranges are not reported, since discordance with absolute values may lead to misinterpretation of CBC data. Current Interpretive Data was last revised on 2017. Basophil pct 0.7 % [facility] Comment: Interpretive Data Percent cell count reference ranges are not reported, since discordance with absolute values may lead to misinterpretation of CBC data. Current Interpretive Data was last revised on 2017. Blood 11/15/2024 9:47 AM CDT 11/15/2024 10:08 AM CDT Charlotte Geller MD PhD LAB BLOOD ORDERABLES Pamela l Result [facility] Department [place] [address] * (ABNORMAL) CBC with auto differential (11/15/2024 9:47 AM CDT) WBC 6.08 3.80 - 9.90 K/cumm Hgb 15.2 13.0 - 17.5 g/dL [facility] Hct 43.6 38.9 - 50.3 % [facility] Plt 241 150 - 400 K/cumm [facility] MPV 9.3 9.1 - 12.3 fL [facility] RBC 4.15(L) 4.30 - 5.80 M/cumm [facility] MCV 105.1(H) 81.3 - 96.4 fL [facility] MCH 36.6(H) 27.1 - 33.3 pg [facility] MCHC 34.9 32.3 - 35.7 g/dL [facility] RDW CV 12.9 11.1 - 14.9 % [facility] RDW SD 49.8(H) 35.7 - 48.1 fL [facility] NRBC abs 0.00 0.00 - 0.01 K/cumm [facility] Blood 11/15/2024 9:47 AM CDT 11/15/2024 10:08 AM CDT Charlotte Geller MD PhD LAB BLOOD ORDERABLES Pamela l Result Performing Organization Address City/[facility]/ZIP Co de Phone Number [facility] Department [place] [address] * CRP (acute phase) (11/15/2024 9:47 AM CDT) [facility] CRP 1.7 <=10.0 mg/L Blood 11/15/2024 9:47 AM CDT 11/15/2024 10:08 AM CDT Charlotte Geller MD PhD LAB BLOOD ORDERABLES Pamela l Result Performing Organization Address City/[facility] Co de Phone Number [facility] [place] [address] * Comprehensive metabolic panel (11/15/2024 9:47 AM CDT) [facility] Sodium 138 135 - 145 mmol/L Potassium, pl 3.8 3.3 - 4.9 mmol/L [facility] Chloride 102 97 - 110 mmol/L [facility] CO2 25 22 - 32 mmol/L [facility] Anion gap 11 2 - 15 mmol/L [facility] BUN 15 6 - 25 mg/dL [facility] Creatinine 0.87 0.80 - 1.30 mg/dL [facility] Glucose 160 70 - 199 mg/dL [facility] Comment: Interpretive Data Fasting glucose >/= 126 mg/dl is diagnostic for diabetes. Fasting is defined as no caloric intake for at least 8 hours. Fasting glucose between 100 mg/dl to 125 mg/dl is diagnostic of prediabetes. In a patient with classic symptoms of hyperglycemia or hyperglycemic crisis, a random glucose >/= 200 mg/dl is diagnostic for diabetes. In the absence of unequivocal hyperglycemia, results should be confirmed by repeat testing. The classification and Diagnosis of Diabetes Diabetes Care 202; 46: S19-S40. Current interpretive data was last revised 2022. Calcium 9.4 8.5 - 10.3 mg/dL [facility] Bilirubin, total 0.5 0.1 - 1.2 mg/dL [facility] Protein, pl 7.6 6.5 - 8.5 g/dL [facility] Albumin 4.3 3.5 - 5.0 g/dL [facility] Alk phos 110 40 - 130 Units/L [facility] ALT 31 7 - 55 Units/L [facility] AST 24 10 - 50 Units/L [facility] Blood 11/15/2024 9:47 AM CDT 11/15/2024 10:08 AM CDT us Charlotte Geller MD PhD LAB BLOOD ORDERABLES Pamela astudillo Result [facility] Department [place] [address] from Last 3 Months Insurance [employer] MEDICARE HMO MEDICARE [facility] OTHER Address: [address] [place] [phone] [facility] MEDICARE [facility] MEDICARE HMO Advance Directives For more information, please contact: [phone] * Full Code (Latest Code Status on File) Date Activated Date Inactivated Comments 04/14/2023 10:34 AM 04/14/2023 5:25 PM * Full Code Date Activated Date Inactivated Comments 04/16/2022 7:19 AM 04/16/2022 12:50 PM * Full Code Date Activated Date Inactivated Comments 04/21/2020 5:33 PM 04/24/2020 5:19 PM * Full Code Date Activated Date Inactivated Comments 07/03/2018 5:32 PM 07/08/2018 5:02 PM Care Teams [employer] Relationship Specialty Start Date End Date Jai Hanson MD PCP - General Internal Medicine 02/13/18
--- OUTSIDE RECORDS SUMMARY | 2025-01-24 01:35 | XMS_ITS | Encounter Summary ---
Author Organization [facility] Address [address] [place] [address] Phone Care Team Providers Care White Sourer Name Role Phone Jai Hanson MD Primary Care Provider [phone] Encounter Details Date Type Department Care Team (Latest Contact Info) Description 01/09/2025 Results Follow-Up [facility] Medicine Gastroenterology [address] [facility] [address] [place] [address] Charlotte Geller MD PhD [address] [place] [address] MRI Abdomen Enterography W WO Contrast Social History Tobacco Use Types Packs/Day Years Used Date Smoking Tobacco: Some Days Cigarettes 0.5 44.1 Started: 1974; Last attempted to quit: 05/01/2018 Smokeless Tobacco: Never Comments:working towards smo [...] on file Legal Sex Male 3:12 PM [employer] Gender Identity Not on file Sexual Orientation Not on file documented as of this encounter Plan of Treatment Not on file documented as of this encounter Visit Diagnoses Not on filedocumented in this encounter Care Teams White Sourer Relationship Specialty Start Date End Date Jai Hanson MD PCP - General Internal Medicine 02/13/18 documented as of this encounter
--- NOTE | 2025-01-24 06:20 | WPDHPUPDATE1 ---
History and Physical Update Update Date/Time: 01/24/25 06:20 History and Physical has been reviewed, including an updated exam of the patient. There are NO changes in the patient's condition. Risks, benefits, and alternatives have been discussed and questions answered. Patient agrees to proceed with procedure.
[2025-01-24 11:11] VITALS: BP 145/98; PULSE 65; RESP 20; TEMP 36.9; O2SAT 100
[2025-01-24] MEDS: LACTATED RINGERS 1,000 ML 30 ML IV CONT (11:40)
--- NOTE | 2025-01-24 12:15 | WPDANESEPPF ---
Anes - Initial Pre Proc Eval Procedure: Operation Date: 01/24/25 13:00 Proposed Procedures p Trans Rectal Ultrasound Fusion Guided Prostate Biopsy - Everton Alcazar MD Date/Time: 01/24/25 12:15 Surgeon: Everton Alcazar MD Pre Op Diagnosis: Elev PSA Patient Data Age: 64 Gender: M Height: 1.75 m Weight: 99 kg Last Vital Signs Temp 98.4 F 01/24/25 11:11 Pulse 65 01/24/25 11:11 Resp 20 01/24/25 11:11 BP 145/98 H 01/24/25 11:11 Pulse Ox 100 01/24/25 11:11 O2 Del Method Room Air 01/24/25 11:11 Allergies Allergy/AdvReac Type Severity Reaction Status Date / Time No Known Allergies Allergy Verified 01/14/25 14:54 Home Medications ?Medication ?Instructions ?Recorded ?Confirmed ?Type ascorbic acid (vitamin C) 1,000 mg 500 mg PO DAILY 01/14/25 01/24/25 History tablet,extended release (C Complex) cyanocobalamin (B12)-cobamamide mustapha sublingual DAILY 01/14/25 History 5,000 mcg-100 mcg sublingual lozenge (B12) losartan 100 mg tablet 100 mg PO DAILY 01/14/25 01/24/25 History methotrexate sodium 2.5 mg tablet 2.5 mg PO WEEKLY 01/14/25 01/24/25 History vit D3-folic acid-vit B2-B6-B12 1 tablet PO DAILY 01/14/25 01/24/25 History 2,000 unit-800 mcg-0.32 mg tablet folic acid 1 mg tablet 1 mg PO DAILY 01/24/25 01/24/25 History Patient hx anesthesia problems: none Family hx anesthesia problems: none Results Review: All pre-operative results and documents have been reviewed as part of the pre-operative evaluation. [facility] Family History Family History Father Family history of diabetes mellitus in first degree relative Other Diabetes mellitus Hypertension Social History Social History Years smoked: 30 Smoking status: Former smoker Alcohol intake: current Drinks per week: 20 Substance use type: marijuana Other substance usage details: daily Living arrangements: with family Spiritual care concerns: No Anes - Eval Final PreProcedure Day of Procedure 01/24/25 12:15 Patient weight: obese Lungs: normal air movement Airway: Mallampati scale class II Neurological: alert and oriented Last oral intake: >/= 8 hours ASA classification: II Emergent: no Anesthetic plan: proceed Anesthesia type and monitoring: general GIVS and standard monitoring Results Review: All pre-operative results and documents have been reviewed as part of the pre-operative evaluation. HTN, BMI 32, ex smoker, current cigars. 1-2 fos, no cp, mild sob w speed. Informed Consent: The patient's anesthetic plan and its attendant risks and benefits were discussed with the patient/family/POA. Questions were solicited and answers provided to the satisfaction of the patient/family/POA.
[2025-01-24] MEDS: cefTRIAXone 1 GM in SODIUM CHLORIDE 0.9% IV 50 ML 100 ML IVPB (13:20)
[2025-01-24 13:38] VITALS: BP 131/69; PULSE 80; RESP 16; O2SAT 97
--- NOTE | 2025-01-24 13:45 | P.OP_ITS ---
Procedure Note - Detailed Date of Procedure 01/24/25 Pre-op Diagnosis Elevated PSA Post-op Diagnosis Same Procedure Performed Transrectal ultrasound with attempted biopsy of prostate Surgeon Everton Alcazar MD Anesthesia MAC Description of Procedure Patient is brought to the operative suite where he was placed in the left lateral position in preparation for transrectal ultrasonography and systemic sedation is administered per the anesthesia department. 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 More proximal to the stenotic area there appears to be a 2-3 cm of her rectal movement. I attempted transrectal ultrasonography with a standard transrectal probe and, unfortuna maria luzy, could not negotiate the probe beyond area stricture. At that site level of ultrasonography I was unable to see more than just the very apex of his prostate, certainly not enough to do a reliable prostate ultrasound and biopsy. In light of that we aborted the procedure. He tolerated the procedure was taken recovery good condition. This was all done with care to avoid any potential for injury to his rectal vault Packing No Pathology None sent
[2025-01-24 14:05] VITALS: BP 150/86; PULSE 79
[2025-01-24 14:30] VITALS: BP 127/65; PULSE 75
== END 2025-01-24 14:44 | disposition home or self-care (01) ==
PROVIDERS: PCP Internal Medicine; Visit Provider Urology
PROC: (CPT 55700; principal; 2025-01-24 13:00)
DX: R97.20 Elevated prostate specific antigen [PSA] (principal); K62.4 Stenosis of anus and rectum; Z53.8 Procedure and treatment not carried out for other reasons
CPT/HCPCS: 55700; 76872; A9270; J0696; J2003; J2250; J2405; J2704; J3010; J7120

== ENCOUNTER 2025-03-08 10:51 | Outpatient (CLI) | payer MEDICARE, SELFPAY ==
[2025-03-08 12:10] LABS: Hematocrit 45.9 % (42.0-52.0); Hemoglobin 15.5 g/dL (14.0-18.0); Mean Corpuscular HGB Conc 33.8 g/dl (32-36); Mean Corpuscular Hemoglobin 36.1 pg (26-34); Mean Corpuscular Volume 107.0 fl (80-100); Platelet Count Result 224 k/mm3 (150-375); Red Blood Count 4.29 M/mm3 (4.6-6.20); White Blood Count 7.7 K/mm3 (4.5-10.0)
[2025-03-08 12:25] LABS: INR 1.0; Partial Thromboplastin Time 26.4 Seconds (22.3-36.8); Prothrombin Time 13.0 Seconds (11.1-14.7)
== END 2025-03-08 10:52 | disposition home or self-care (01) ==
PROVIDERS: PCP Internal Medicine; Visit Provider Urology
DX: R97.20 Elevated prostate specific antigen [PSA] (principal)
CPT/HCPCS: 36415; 85027; 85610; 85730